=== PATIENT | female | born 1980 | race Caucasian/White ===

== ENCOUNTER 2017-06-08 16:03 | Inpatient (IN) | payer OTHER ==
[~2017-06-08] VITALS: Ht 160 cm; Wt 83.2 kg
[~2017-06-08 16:03] MED LIST: PREN-19 PO
[2017-06-08] MEDS ORDERED: LACTATED RINGER'S 1,000 ML IV SCH (17:48)
[2017-06-08] MEDS ORDERED: FERR236T PO (17:49)
[2017-06-08] MEDS ORDERED: CALC600T11 PO (17:49)
[2017-06-08 17:53] VITALS: BP 111/80; PULSE 80; RESP 18
[2017-06-08] MEDS ORDERED: MISOPROSTOL 200 MCG TAB PR PRN (18:00)
[2017-06-08] MEDS ORDERED: CEFAZOLIN 2 GM/50 ML (PMX) 50 ML IV SCH (18:00)
[2017-06-08] MEDS ORDERED: OXYTOCIN 30 UNITS/LR 500 ML IV PRN (18:00)
[2017-06-08] MEDS ORDERED: METHYLERGONOVINE 0.2 MG INJ IM PRN (18:00)
[2017-06-08] MEDS ORDERED: OXYTOCIN 30 UNITS/LR 500 ML IV SCH (18:00)
[2017-06-08] MEDS ORDERED: CARBOPROST 250 MCG INJ IM PRN (18:00)
[2017-06-08 18:09] LABS: BASOPHILS % 0.2 % (0.0-2.0); EOSINOPHILS % 0.3 % (0.0-7.0); HEMATOCRIT 34.1 % (37.0-47.0); HEMOGLOBIN 11.5 g/dl (12.0-16.0); LYMPHOCYTES # 1.9 10^3/ul (0.8-2.9); LYMPHOCYTES % 15.4 % (15.0-51.0); MEAN CORPUSCULAR HEMOGLOBIN 28.7 pg (29.0-33.0); MEAN CORPUSCULAR HGB CONC 33.7 g/dl (32.0-37.0); MEAN PLATELET VOLUME 10.8 fl (7.4-10.4); MONOCYTE # 0.5 10^3/ul (0.3-0.9); MONOCYTES % 4.5 % (0.0-11.0); NEUTROPHILS % 78.3 % (39.0-77.0); PLATELET COUNT 222 10^3/UL (140-415); RED BLOOD COUNT 4.01 10^6/ul (4.20-5.40); RED CELL DISTRIBUTION WIDTH 14.4 % (11.5-14.5)
[2017-06-08 18:31] LABS: INR 0.94; PROTIME 12.6 Sec (12.2-14.2)
[2017-06-08 18:32] LABS: PARTIAL THROMBOPLASTIN TIME 24.9 Sec (25.0-35.0)
[2017-06-08 18:44] LABS: BARBITURATES Negative (NEGATIVE); BENZODIAZEPINES Negative (NEGATIVE); CANNABINOIDS Negative (NEGATIVE); COCAINE Negative (NEGATIVE); OPIATES Negative (NEGATIVE)
[2017-06-08] MEDS ORDERED: morphine SULFATE/PF (10 MG/10 ML) INJ ONE (18:46)
[2017-06-08] MEDS ORDERED: FENTAnyl 50 MCG/ML VIAL ONE (18:46)
[2017-06-08] MEDS ORDERED: PHENYLephrine (100 MCG/ML) 5ML SYG ONE (18:49)
[2017-06-08] MEDS ORDERED: ONDANSETRON 4 MG INJ ONE (19:18)
[2017-06-08] MEDS ORDERED: DEXAMETHASONE 4 MG/ML 1 ML INJ ONE (19:18)
[2017-06-08] MEDS ORDERED: MIDAZOLAM 1 MG/ML 2 ML INJ ONE (19:34)
[2017-06-08] MEDS ORDERED: DIPHENHYDRAMINE 50 MG INJ ONE (19:42)
--- NOTE | 2017-06-08 20:31 | HP ---
Date/Time of Note Date/Time of Note DATE: 06/08/17 TIME: 20:24 OB - History Hx of Present Free Text/Dictation Admitted for repeat section at term Chief Complaint: None Last Menstrual Period: Sep 04, 2016 Estimated Due Date: Jun 11, 2017 : 2 Para: 1 Care: Good Care Ultrasounds: Normal mid trimester US Obstetrical Complications: None Medical Complications: None Past Family/Social History * Past Medical, Surgical, Family and Obstetric Histories reviewed from chart. Blood Type: B+ Rubella: immune RPR/VDRL: Negative GBS Status: Positive HBsAG: Negative OB Admission Exam Vital Signs Vital Signs Vital Signs Date Time Temp Pulse Resp B/P Pulse Ox O2 Delivery O2 Flow Rate FiO2 06/08/17 17:53 98.2 80 18 111/80 100 Room Air Physical Exam HEENT: WNL Heart: Rhythm Normal Lungs: Clear, Equal Abdomen: WNL Extremities: Normal Reflexes: Normal Cervical Dilatation: None Effacement: 0% Station: -3 Membranes: Intact Heart Rate: 130's Accelerations: Accelerations Present Decelerations: No Decelerations Varibility: Marked Contractions on Admission: None Last 72 hours Lab Results CBC & BMP 06/08/17 17:14 OB Assessment/Plan Other Assessment: Term gestation Previous Desires repeat Other plan: Proceed with repeat delivery BERENICE MILLER MD Jun 08, 2017 20:31
--- NOTE | 2017-06-08 20:34 | OPR ---
Operative Report Planned Procedure Procedure date Jun 08, 2017 Procedure(s) Ren delivery Performed by: BERENICE MILLER MD Assisting provider: LUIS FERNANDO GR Anesthesiologist: HEVER KAUFFMAN DO Pre-procedure diagnosis Term gestation Previous Anesthesia Type: spinal Procedure Description Under satisfactory anaesthesia a Pfannenstiel incision was made two fingerbreadth above and parallel to the symphysis of pubis around the previous scar and previous scar was removed Incision was extended laterally to the border of the Recti muscles on either sides. Incision was carried down with sharp and blunt dissection until fascia was reached. Anterior Recti muscle fascia was incised in mid portion and incision extended laterally to the border of skin incision. Fascia was mobilized from muscle superiorly and Recti muscles were from midline using sharp and blunt dissection. Peritoneum was visualized; Avoiding bowel and bladder it was incised . Incision was extended superiorly and inferiorly. Bladder blade was placed. Posterior peritoneum covering the lower segment of the uterus and lower segment of the uterus were incised.Low transverse uterine incision was made on lower segment of the uterus. Incision extended laterally to the border of Round Lig. on either sides and baby was delivered from OT. position . Amniotic fluid appeared clear. Cord blood was obtained and cord had 3 vessels . Placenta was delivered spontaneously and appeared intact and complete. Intrauterine cavity was rubbed with a laparotomy sponge. Uterine incision was closed in 2 layers using running stitches of No1 Monocryl. Hemostasis appeared secure. Ovaries and Fallopian tubes were within normal limits. Announcing needle, lap sponge and instrument count to be correct abdomen was closed in layers as follows: Peritoneum and Recti muscles with running stitches of 20 Vicryl. Fascia with running stitch of No 1 PDS. Subcutaneous tissue with running stitches of 20 Chromic and skin was closed using mckinley. Patient tolerated the procedure well and was transferred to [facility] in good condition. Post-Procedure Post-procedure diagnosis Status post Findings: Live Baby . Specimen removed: No Complications: None Pt Condition post procedure: stable Disposition: PACU Physician Certification I, the undersigned physician, hereby certify that I have discussed the procedure described in this consent form with this patient (or the patient's legal customer contact representative), including: * The risk and benefits of the procedure; * Any adverse reactions that may reasonably be expected to occur; * Any alternative efficacious methods of treatment which may be medically viable ; * The potential problems that may occur during recuperation; * Potential for blood transfusion and associated risks/benefits; and * Any research or economic interest I may have regarding this treatment. I further certify that the patient/legally responsible person was encouraged to ask question and that all questions were answered. BERENICE MILLER MD Jun 08, 2017 20:34
[2017-06-08] MEDS ORDERED: ONDANSETRON 4 MG INJ IV PRN (21:00)
[2017-06-08] MEDS ORDERED: ZOLPIDEM 5 MG TAB PO PRN (21:00)
[2017-06-08] MEDS ORDERED: TRIMETHOBENZAMIDE 100 MG/ML VIAL IM PRN (21:00)
[2017-06-08] MEDS ORDERED: HYDROmorphONE 1 MG/ML SYG IV PRN ×2 (21:00)
[2017-06-08] MEDS ORDERED: NALOXONE (0.4 MG/ML) INJ IV PRN (21:00)
[2017-06-08] MEDS ORDERED: NALBUPHINE HCL (10 MG/1 ML) INJ IV PRN (21:00)
[2017-06-08] MEDS ORDERED: DIPHENHYDRAMINE 50 MG INJ IV PRN (21:00)
[2017-06-08] MEDS: KETOROLAC 30 MG INJ IV PRN (21:09)
[2017-06-08 21:30] VITALS: BP 117/56; PULSE 68; RESP 20
[2017-06-08 21:45] VITALS: BP 123/58; PULSE 70; RESP 20
[2017-06-08 22:00] VITALS: BP 124/58; PULSE 69; RESP 20
[2017-06-08 22:15] VITALS: BP 114/61; PULSE 76; RESP 20
[2017-06-08 22:30] VITALS: BP_SYST 111; BP_SYST 114; BP_DIAS 59; PULSE 65; PULSE 69; RESP 20
[2017-06-09] MEDS: LACTATED RINGER'S 1,000 ML IV SCH ×3 (00:17→10:37)
[2017-06-09 00:20] VITALS: BP 110/58; PULSE 56; RESP 19
[2017-06-09] MEDS ORDERED: CARBOPROST 250 MCG INJ IM PRN (00:30)
[2017-06-09] MEDS ORDERED: LANOLIN 7 GM TUBE TOP PRN (00:30)
[2017-06-09] MEDS ORDERED: OXYCODONE/ACETAMINOPHEN (5/325) TAB PO PRN (00:30)
[2017-06-09] MEDS ORDERED: OXYTOCIN 30 UNITS/LR 500 ML IV PRN (00:30)
[2017-06-09] MEDS ORDERED: MISOPROSTOL 200 MCG TAB PR PRN (00:30)
[2017-06-09] MEDS ORDERED: METHYLERGONOVINE 0.2 MG INJ IM PRN (00:30)
[2017-06-09] MEDS ORDERED: NA PHOSPHATE/BIPHOS 133 ML ENEMA PR PRN (00:30)
[2017-06-09] MEDS: CEFAZOLIN 2 GM/50 ML (PMX) 50 ML IV SCH ×3 (00:46→15:36)
[2017-06-09] MEDS: KETOROLAC 30 MG INJ IV PRN ×3 (03:02→15:37)
[2017-06-09] MEDS: CLINDAMYCIN 300 MG CAP PO SCH ×4 (05:38→23:47)
[2017-06-09 07:50] VITALS: BP 107/54; PULSE 64; RESP 18
[2017-06-09] MEDS: NICOTINE (7 MG/24 HR) PATCH TRANSDERM SCH (09:00)
[2017-06-09] MEDS ORDERED: BISACODYL 10 MG SUPP PR ONE (10:00)
[2017-06-09 11:00] LABS: BASOPHILS % 0.1 % (0.0-2.0); EOSINOPHILS % 0.1 % (0.0-7.0); HEMATOCRIT 30.6 % (37.0-47.0); HEMOGLOBIN 9.7 g/dl (12.0-16.0); LYMPHOCYTES # 1.7 10^3/ul (0.8-2.9); LYMPHOCYTES % 11.5 % (15.0-51.0); MEAN CORPUSCULAR HEMOGLOBIN 27.4 pg (29.0-33.0); MEAN CORPUSCULAR HGB CONC 31.7 g/dl (32.0-37.0); MEAN CORPUSCULAR VOLUME 86.4 fl (82.0-101.0); MEAN PLATELET VOLUME 10.3 fl (7.4-10.4); MONOCYTE # 0.6 10^3/ul (0.3-0.9); MONOCYTES % 4.4 % (0.0-11.0); NEUTROPHILS % 83.1 % (39.0-77.0); PLATELET COUNT 185 10^3/UL (140-415); RED BLOOD COUNT 3.54 10^6/ul (4.20-5.40); RED CELL DISTRIBUTION WIDTH 14.5 % (11.5-14.5); WHITE BLOOD COUNT 14.3 10^3/ul (4.8-10.8)
[2017-06-09 12:12] VITALS: BP 95/60; PULSE 79; RESP 20
--- NOTE | 2017-06-09 15:02 | PN ---
Date/Time of Note Date/Time of Note DATE: 06/09/17 TIME: 15:00 Assessment/Plan VTE Prophylaxis VTE Prophylaxis Intervention: ambulation Lines/Catheters IV Catheter Type (from Nrsg): Peripheral IV Assessment/Plan Assessment/Plan Status post postop day 1 ADVance diet and ambulate Monitor vital signs Repeat CBC next day Subjective 24 Hr Interval Summary Passing gas No bowel movements Complaining of minimal incisional pain Exam/Review of Systems Vital Signs Vitals Vital Signs Date Time Temp Pulse Resp B/P Pulse Ox O2 Delivery O2 Flow Rate FiO2 06/09/17 12:12 98.1 79 20 95/60 Room Air 06/09/17 04:15 96 21 Intake and Output 06/08/17 06/08/17 06/09/17 15:00 23:00 07:00 Intake Total 1980 ml 300 ml Output Total 400 ml 1100 ml Balance 1580 ml -800 ml Exam Free Text/Dictation Abdomen is soft bowel sounds present Abdomen is not distended Incision is covered Abdomen is tender around the incision is slightly Constitutional: alert, oriented, well developed Psych: nl mood/affect, no complaints Head: atraumatic, normocephalic Eyes: EOMI, nl conjunctiva, nl lids, nl sclera ENMT: mucosa pink and moist, nl external ears & nose, nl lips & teeth, nl nasal mucosa & septum Neck: non-tender, supple Respiratory: clear to auscultation, normal air movement Cardiovascular: nl pulses, regular rate and rhythm Gastrointestinal: nl liver, spleen, non-tender, soft Drains None Musculoskeletal: nl extremities to inspection, nl gait and stance Extremities: normal pulses Neurological: INFORMATICS SPECIALIST II-XII intact, nl mental status, nl speech, nl strength Skin: nl turgor, rash or lesions Lymph: nl lymph nodes Results Result Diagram: 06/09/17 1010 BERENICE MILLER MD Jun 09, 2017 15:02
[2017-06-09 20:00] VITALS: BP 114/68; PULSE 71; RESP 19
[2017-06-09] MEDS: SENNA/DOCUSATE NA (8.6MG/50MG) TAB PO SCH (22:41)
[2017-06-09] MEDS: IBUPROFEN 800 MG TAB PO SCH (22:41)
[2017-06-09] MEDS: HYDROCODONE/APAP (5/325) TAB PO PRN (22:41)
[2017-06-10] MEDS: HYDROCODONE/APAP (5/325) TAB PO PRN ×4 (02:09→19:48)
[2017-06-10 04:00] VITALS: BP 105/60; PULSE 73; RESP 18
[2017-06-10] MEDS: IBUPROFEN 800 MG TAB PO SCH ×3 (06:00→22:52)
[2017-06-10] MEDS ORDERED: BISACODYL 10 MG SUPP PR ONE (06:16)
[2017-06-10] MEDS: CLINDAMYCIN 300 MG CAP PO SCH ×3 (06:30→17:53)
[2017-06-10 08:00] VITALS: BP 121/78; PULSE 78; RESP 18
[2017-06-10] MEDS: NICOTINE (7 MG/24 HR) PATCH TRANSDERM SCH (09:00)
[2017-06-10] MEDS: SENNA/DOCUSATE NA (8.6MG/50MG) TAB PO SCH ×2 (10:03→21:52)
[2017-06-10 12:14] LABS: BASOPHILS % 0.3 % (0.0-2.0); EOSINOPHILS # 0.1 10^3/ul (0.0-0.5); EOSINOPHILS % 1.1 % (0.0-7.0); HEMATOCRIT 34.7 % (37.0-47.0); HEMOGLOBIN 10.9 g/dl (12.0-16.0); LYMPHOCYTES # 1.9 10^3/ul (0.8-2.9); LYMPHOCYTES % 18.7 % (15.0-51.0); MEAN CORPUSCULAR HEMOGLOBIN 27.7 pg (29.0-33.0); MEAN CORPUSCULAR HGB CONC 31.4 g/dl (32.0-37.0); MEAN CORPUSCULAR VOLUME 88.1 fl (82.0-101.0); MEAN PLATELET VOLUME 10.4 fl (7.4-10.4); MONOCYTE # 0.7 10^3/ul (0.3-0.9); MONOCYTES % 6.4 % (0.0-11.0); NEUTROPHILS % 72.7 % (39.0-77.0); PLATELET COUNT 192 10^3/UL (140-415); RED BLOOD COUNT 3.94 10^6/ul (4.20-5.40); RED CELL DISTRIBUTION WIDTH 14.8 % (11.5-14.5); WHITE BLOOD COUNT 10.3 10^3/ul (4.8-10.8)
--- NOTE | 2017-06-10 14:01 | DS ---
Date/Time of Note Date/Time of Note home next day or today DATE: 06/10/17 TIME: 13:59 Obstetrical Discharge Record Final Diagnosis Final Diagnosis: Term delivered Other Final Diagnosis S/P C/S Section Section: Repeat Condition on Discharge Physical Assessment Last Vitals: see nurses notes Voiding: Yes Bowel Movement: Yes Breast: Soft, non-tender, Filling Fundus: Firm Abdomen and Incision: soft BS + incision:healing well Episiotomy: NA Calf Tenderness: No Patient Condition: Good BERENICE MILLER MD Jun 10, 2017 14:01
--- NOTE | 2017-06-10 14:05 | PD.PPDC ---
CHANNEL MANAGER Discharge Instruction Provider Information Physician Information 36 y/o female had repeat C/S Diagnosis Final Diagnosis: S/P C/S Condition Patient Condition: Good Diet Diet: Resume Regular Diet Activity/Restrictions Activity: February Shower Restrictions: No Exercising No Lifting Nothing in the Vagina Return to Work or School: Aug 10, 2017 Follow-up Follow-up with Physician: 3, 4, Day/Days (in clinic for staple removal ) Return to clinic for AUTO TECHNICIAN Instructions: Fever greater than 101 Chills OB Instructions: Breast Tenderness Depression Comment: pelvic rest X 2 months Surgical Instructions: Incisional Drainage Incisional Redness BERENICE MILLER MD Jun 10, 2017 14:05
[2017-06-10] MEDS ORDERED: IBUP800T25 PO (14:06)
--- NOTE | 2017-06-10 14:12 | DS ---
Date/Time of Note Date/Time of Note DATE: 06/10/17 TIME: 14:09 Discharge Summary Admission/Discharge Info Admit Date/Time Jun 08, 2017 at 16:03 Discharge Date/Time 06/11/2017 Discharge Diagnosis S/P C/S Patient Condition: Good Procedures repeat C/S Hx of Present Illness 36 y/o female had repeat C/S Hospital Course uncomplicated Home Meds Active Scripts Ibuprofen* (Ibuprofen*) 800 Mg Tablet, 800 MG PO Q8, #30 TAB 0 Refills Prov:BERENICE MILLER MD 06/10/17 Reported Medications Ferrous Gluconate (Iron) 236 Mg Tablet, 236 MG PO DAILY, TAB 06/08/17 Calcium Carbonate* (Calcium Carbonate*) 600 MG Ca Tab, 600 MG PO DAILY, TAB 06/08/17 Vit-Iron,Carbonyl-FA (Prenatabs Rx) 1 Tab Tablet, 1 TAB PO, TAB 01/05/15 Follow-up Plan 3-4 days in clinic for staple removal Primary Care Provider Jc Riddle MD Pending Labs Laboratory Tests Test 06/10/17 11:08 White Blood Count 10.310^3/ul (4.8-10.8) Red Blood Count 3.9410^6/ul (4.20-5.40) Hemoglobin 10.9g/dl (12.0-16.0) Hematocrit 34.7% (37.0-47.0) Mean Corpuscular Volume 88.1fl (82.0-101.0) Mean Corpuscular Hemoglobin 27.7pg (29.0-33.0) Mean Corpuscular Hemoglobin Concent 31.4g/dl (32.0-37.0) Red Cell Distribution Width 14.8% (11.5-14.5) Platelet Count 51140^3/UL (140-415) Mean Platelet Volume 10.4fl (7.4-10.4) Neutrophils % 72.7% (39.0-77.0) Lymphocytes % 18.7% (15.0-51.0) Monocytes % 6.4% (0.0-11.0) Eosinophils % 1.1% (0.0-7.0) Basophils % 0.3% (0.0-2.0) Nucleated Red Blood Cells % 0.0/100WBC (0.0-0.0) Neutrophils # (Manual) 7.510^3/ul (1.7-7.5) Lymphocytes # 1.910^3/ul (0.8-2.9) Monocytes # 0.710^3/ul (0.3-0.9) Eosinophils # 0.110^3/ul (0.0-0.5) Basophils # 0.010^3/ul (0.0-0.1) Nucleated Red Blood Cells # 0.010^3/ul (0.0-0.0) BERENICE MILLER MD Jun 10, 2017 14:12
[2017-06-10 16:00] VITALS: BP 122/63; PULSE 79; RESP 19
[2017-06-10 19:45] VITALS: BP 114/65; PULSE 70; RESP 18
[2017-06-11] MEDS: CLINDAMYCIN 300 MG CAP PO SCH ×3 (00:29→12:22)
[2017-06-11] MEDS: HYDROCODONE/APAP (5/325) TAB PO PRN ×4 (00:30→14:28)
[2017-06-11 04:10] VITALS: BP 105/55; PULSE 62; RESP 18
[2017-06-11] MEDS: IBUPROFEN 800 MG TAB PO SCH ×2 (06:01→13:56)
[2017-06-11 08:15] VITALS: BP 113/60; PULSE 69; RESP 18
[2017-06-11] MEDS: LACTATED RINGER'S 1,000 ML IV SCH ×3 (08:20→10:25)
[2017-06-11] MEDS: SENNA/DOCUSATE NA (8.6MG/50MG) TAB PO SCH (08:38)
[2017-06-11] MEDS: NICOTINE (7 MG/24 HR) PATCH TRANSDERM SCH (08:38)
[2017-06-11] MEDS ORDERED: DIPHTH/TET/ACEL PERTUSS (ADULT) 0.5 ML VIAL IM* ONE (09:00)
[2017-06-11] MEDS ORDERED: MEASLES,MUMPS,RUBELLA VACCINE INJ SC* ONE (09:00)
[2017-06-11 16:41] VITALS: BP 115/62; PULSE 66; RESP 20
== END 2017-06-11 18:00 | disposition home or self-care (01) | DRG 766 ==
LOC: L-D 16:03 → PP1 06-09 00:07
PROVIDERS: ADMIT Obstetrics & Gynecology; ATTEND Obstetrics & Gynecology
PROC: 3E033VJ Introduction of Other Hormone into Peripheral Vein, Percutaneous Approach (ICD-10-PCS; 2017-06-08)
PROC: 10D00Z1 Extraction of Products of Conception, Low, Open Approach (ICD-10-PCS; principal; 2017-06-08 17:00)
DX: O34.211 Maternal care for low transverse scar from previous cesarean delivery (principal); Z37.0 Single live birth; Z3A.39 39 weeks gestation of pregnancy
CPT/HCPCS: 80307; 85025; 85610; 85730; 86592; 86850; 86900; 86901; 87340; 90715; 94760; 99464; J0690; J1100; J1170; J1200; J1885; J2250; J2274; J2370; J2405; J2590; J3010; J7120

== ENCOUNTER 2018-08-06 12:27 | Inpatient (IN) | END 2018-08-09 17:30 | disposition home or self-care (01) | DRG 788 ==